=== PATIENT | female | born 1955 | race Caucasian/White ===

== ENCOUNTER → 2016-11-20 | Outpatient (CLI) | payer OTHER | LOC: BMCIMAGING 09:27 | DX: Z12.31 Encounter for screening mammogram for malignant neoplasm of breast (principal); Z80.3 Family history of malignant neoplasm of breast | CPT/HCPCS: G0202 ==

== ENCOUNTER → 2016-12-08 | Outpatient (CLI) | payer OTHER | LOC: BMCIMAGING 12:37 | DX: Z12.39 Encounter for other screening for malignant neoplasm of breast (principal); N63 Unspecified lump in breast | CPT/HCPCS: G0206 ==

== ENCOUNTER 2017-08-22 12:20 | Emergency (ER) | payer OTHER ==
--- NOTE | 2017-08-22 15:43 | EDPHY ---
H & P Time Seen by Provider: 08/22/17 12:31 HPI/ROS: CHIEF COMPLAINT: Dog bites HISTORY OF PRESENT ILLNESS: 62-year-old female presents to the emergency department with multiple dog bites to her upper extremities after she was trying to remove a large dog that was assaulting her own dog. The incident happened just prior to arrival. She complains of pain especially in her left hand. She is left-hand dominant. The dog that bit her is up-to-date on rabies immunization. She has already filed a report with the police. She believes her tetanus shot is current. REVIEW OF SYSTEMS: Constitutional: No fever, no chills. Eyes: No double or blurry vision. ENT: No sore throat. Respiratory: No cough, no shortness of breath. Cardiac: No chest pain. Gastrointestinal: No abdominal pain, vomiting or diarrhea. Genitourinary: No dysuria. Musculoskeletal: No neck or back pain. Skin: No rashes. Neurological: No headache. Past Medical/Surgical History: Negative Social History: Smoking Status: Never smoked Physical Exam: General Appearance: Alert, no distress. Tearful. Family at bedside. Eyes: Pupils equal and round. Extraocular motions are all intact. ENT: Mouth: Mucous membranes moist. Respiratory: No wheezing, rhonchi, or rales, lungs are clear to auscultation. Cardiovascular: Regular rate and rhythm. Gastrointestinal: Abdomen is soft and nontender, no masses, no rebound or guarding, bowel sounds normal. Neurological: Alert and oriented x 3, cranial nerves II through XII grossly intact Skin: Multiple puncture wounds noted to the dorsal aspect of her right hand measuring less than 0.5 cm. Full range of motion of her right hand. No palpable bony tenderness. No obvious swelling noted. There also multiple puncture wounds to the dorsal aspect of her left hand measuring approximately 1 cm. There is 1 over the dorsal aspect of her left 5th digit, left 3rd digit, left 2nd digit and near the base of the thumb. There is also a very small 0.5 cm flap laceration dorsal aspect of her left thumb overlying D IP joint. Warm and dry, no rashes. Musculoskeletal: Nontender to palpate along the cervical, thoracic or lumbar spine. Neck is supple. Extremities: Full range of motion of her fingers. She does have some mild pain with palpation of the 2nd and the 3rd metacarpals of the left hand especially. Is quite swollen and ecchymotic. No obvious rotational deformities noted. No tendon injury identified. Psychiatric: Patient is oriented X 3, there is no agitation. Constitutional: Initial Vital Signs Temperature (C) 36.7 C 08/22/17 12:27 Heart Rate 107 H 08/22/17 12:27 Respiratory Rate 18 08/22/17 12:27 Blood Pressure 145/69 H 08/22/17 12:27 O2 Sat (%) 98 08/22/17 12:27 O2 Delivery Mode Room Air Allergies/Adverse Reactions: ampicillin [Ampicillin] Allergy (Mild, Verified 08/10/10 07:52) clobetasol propionate [From CLOBEX] Allergy (Mild, Verified 08/10/10 07:52) dexamethasone [From Maxitrol] Allergy (Mild, Verified 08/10/10 07:52) iron [Iron] Allergy (Mild, Verified 08/10/10 07:52) latex [Latex] Allergy (Mild, Verified 08/10/10 07:52) miconazole nitrate [From Monistat 3] Allergy (Mild, Verified 08/10/10 07:52) neomycin [From Maxitrol] Allergy (Mild, Verified 08/10/10 07:52) oxycodone HCl [From Percocet] Allergy (Mild, Verified 08/10/10 07:52) Penicillins Allergy (Mild, Verified 08/10/10 07:52) polymyxin B sulfate [From Maxitrol] Allergy (Mild, Verified 08/10/10 07:52) prochlorperazine maleate [From Compazine] Allergy (Mild, Verified 08/10/10 07:52 ) tetracycline [Tetracycline] Allergy (Mild, Verified 08/10/10 07:52) zinc [Zinc] Allergy (Mild, Verified 08/10/10 07:52) Horse/Equine Containing Products Allergy (Unknown, Verified 03/11/15 11:45) Other-Enter Comments oxytetracycline Allergy (Mild, Uncoded 03/11/15 11:41) Other-Enter Comments allum powder Allergy (Unknown, Uncoded 03/11/15 11:48) Unknown Home Medications: Medication Instructions Recorded Aspirin EC [Aspirin EC 81 mg (*)] 81 mg PO DAILY 08/22/17 Ciprofloxacin [Cipro] 500 mg PO BID #14 tab 08/22/17 Clindamycin 450 mg PO TID 7 Days #63 cap 08/22/17 Diclofenac Sodium [Voltaren 50 MG 50 mg PO BID 08/22/17 (*)] SIMVASTATIN 10 mg PO 08/22/17 Medical Decision Making - Diagnostics Imaging Results: Imaging Impressions Hand X-Ray 08/22/17 12:51 Impression: Small 2nd metacarpal cortical divot fracture.. Imaging: I viewed and interpreted images myself Procedures: Verbal consent was obtained from the patient. The multiple 1 cm laceration on the dorsal aspect of the left hand were anesthetized with 1% lidocaine with epinephrine. The wound was irrigated with saline, draped and explored to its base with a gloved finger. There were no deep structures involved. No tendon injury was identified. Lacerations were not repaired given dog bite wounds. The procedure was performed by myself. ED Course/Re-evaluation: 62-year-old female presents to the emergency department with multiple puncture wounds to her left hand. X-rays were obtained of the left hand which revealed a small cortical chip fracture in the 2nd metacarpal. Because this was considered an open fracture, I spoke with on-call orthopedic surgeon. I attempted to call Dr. Mg who was on-call for Hand surgery multiple times and he did not call back. I spoke with Lisha who is a physician assistant manager of operations working with Dr. Juarez was on-call for Orthopedic surgery. They recommended starting the patient on antibiotics, splinting the wounds and they would see her in the office tomorrow. The patient has numerous medication allergies. She was started on clindamycin and ciprofloxacin to prevent infection. Her wounds were thoroughly irrigated and bulky dressing and volar splint applied. Differential Diagnosis: Including but not limited to fracture, contusion, sprain, retained foreign body Departure - Departure Disposition: Home, Routine, Self-Care Clinical Impression: Dog bite of left hand Qualifiers: Encounter type: initial encounter Qualified Code(s): S61.452A - Open bite of left hand, initial encounter Dog bite of right hand Qualifiers: Encounter type: initial encounter Qualified Code(s): S61.451A - Open bite of right hand, initial encounter Condition: Good Instructions: Animal Bite (ED), Acute Wounds (ED) Additional Instructions: Clindamycin 450mg three times daily for 7 days. Cipro 500mg every 12 hours for 7 days. Follow-up with hand surgeon tomorrow. When you call tell them that you were seen in the emergency department and told to be seen Wednesday for follow-up. Ibuprofen 600 mg every 8 hr as needed for pain. Referrals: Lenard Juarez MD [Medical Doctor] - 1 day without fail (Orthopedic surgeon on -call) Prescriptions: Ciprofloxacin [Cipro] 500 mg PO BID #14 tab Clindamycin 450 mg PO TID 7 Days #63 cap
[2017-08-22 16:39] VITALS: BP 155/80; PULSE 94; RESP 13; TEMP 98.8; O2SAT 100
== END 2017-08-22 16:38 | disposition home or self-care (01) ==
DX: S61.452A Open bite of left hand, initial encounter (principal); S61.451A Open bite of right hand, initial encounter; Z79.82 Long term (current) use of aspirin; Z91.040 Latex allergy status; W54.0XXA Bitten by dog, initial encounter; Y99.8 Other external cause status; Y93.89 Activity, other specified

== ENCOUNTER → 2017-11-29 | Outpatient (CLI) | payer OTHER | LOC: FIMAGING 09:43 | PROVIDERS: ATTEND Internal Medicine | DX: Z12.31 Encounter for screening mammogram for malignant neoplasm of breast (principal); Z80.3 Family history of malignant neoplasm of breast ==

== ENCOUNTER → 2018-07-15 | Outpatient (CLI) | payer OTHER | LOC: BMCIMAGING 11:24 | PROVIDERS: ATTEND Internal Medicine Rheumatology | DX: M16.11 Unilateral primary osteoarthritis, right hip (principal); M21.70 Unequal limb length (acquired), unspecified site ==

== ENCOUNTER → 2018-11-24 | Outpatient (CLI) | payer OTHER | LOC: FIMAGING 11:11 | PROVIDERS: ATTEND Physician Assistant | DX: Z01.818 Encounter for other preprocedural examination (principal); M21.70 Unequal limb length (acquired), unspecified site ==

== ENCOUNTER → 2018-11-30 | Outpatient (CLI) | payer OTHER | LOC: FIMAGING 09:33 | PROVIDERS: ATTEND Internal Medicine | DX: Z12.31 Encounter for screening mammogram for malignant neoplasm of breast (principal); Z80.3 Family history of malignant neoplasm of breast ==

== ENCOUNTER 2018-12-12 05:54 | Inpatient (IN) | payer OTHER ==
[2018-12-12] MEDS ORDERED: ROPIVACAINE 0.2% 80 MG, EPINEPHrine 0.2 MG, KETOROLAC TROMETHAMINE 30 MG, morphINE 10 M... IU ONE (06:00)
[2018-12-12] MEDS ORDERED: TRANEXAMIC ACID 1,000 MG in NS 100 ML IV ONE (06:00)
[2018-12-12] MEDS ORDERED: VANCOMYCIN PHARMACY TO DOSE MISC ONE (06:04)
[2018-12-12] MEDS ORDERED: LR 1,000 ML IV ONE ×2 (06:04→06:29)
[2018-12-12] MEDS ORDERED: ACETAMINOPHEN 325 MG TAB PO ONE (06:04)
[2018-12-12] MEDS ORDERED: FAMOTIDINE 20 MG TAB PO ONE (06:04)
--- NOTE | 2018-12-12 06:32 | PDHPUP ---
History & Physical Update H&P update statement: This history and physical update is based on an assessment of the patient which was completed after admission or registration (within 24 hours), but prior to the surgery/procedure. H&P update: no change in patient's condition since H&P completed
--- NOTE | 2018-12-12 06:33 | PDIAF ---
- Diagnosis Diagnosis: left oscar Code Status: Full Code - Medication Management Discharge Medications: electronically signed and located in the Home Medication List. - Orders Services needed: Home Care, Physical Therapy Home Care Face to Face: I certify that this patient was under my care and that I had the required ramv-[id number] encounter meeting the encounter requirements on the discharge day. My findings support the fact that the patient is homebound as defined in Home Care Face to Face Continued: CMS Chapter 7 Medicare Benefits Manual 30.1.1 , The condition of the patient is such that there exists a normal inability to leave home and consequently, leaving home would require a considerable and taxing effort. Diet Recommendation: no restrictions on diet Diet Texture: Regular Texture Diet Additional Instructions: TOTAL JOINT ARTHROPLASTY DISCHARGE INSTRUCTIONS 1. Your surgeon follows the [facility] protocol for reducing your risk of DVT (blood clots) following surgery. Medication will be ordered to prevent blood clots. A sudden increase in calf pain and/or swelling could indicate a blood clot in your leg. If this occurs, please call your surgeon or his/her radiology assistant. An ultrasound of the leg may be necessary to diagnose a blood clot. If you have conditions that make you a higher risk for blood clots, your surgeon may use more aggressive ways to prevent them. Notify your surgeon if you think you are a high risk for blood clots. 2. Wear your white surgical stockings (TUTU hose) for 2 weeks. This decreases your swelling and may help prevent blood clots. It is ok to remove TUTU hose at night time to give your legs a break. 3. Swelling and bruising in the surgical leg is common. If you feel that it is excessive, please notify your surgeon. 4. Elevate your surgical leg with the ankle above the hip several times every day. Please keep the leg straight when you elevate by putting pillows under your foot. Do not put pillows under your knee. This will make being able to fully straighten more difficult. This is uncomfortable, but try to do it as much as possible. 5. For total knee replacements use compressive wrap on your knee for 3-5 days after surgery, then you can discontinue it. 6. Use a walker or crutches for 1-2 weeks. Progress your weight-bearing as tolerated. You may start to use a cane when you feel stable and safe. 7. You will receive physical therapy instructions in the hospital. Continue those exercises at home. There are additional exercises in the total joint booklet you were given before surgery. Outpatient physical therapy will begin 7- 10 days after surgery. Please schedule this in advance. 8. Use ice on your knee at least 3-5 times every day for 30 minutes. This helps reduce pain and swelling. Also use it at night before falling asleep. 9. Leave your surgical dressing in place for 2 weeks. Your dressing is water resistant, but not waterproof. Cover it with Saran Wrap or Tiaeg-m-Gcwy before showering. You may shower as soon as you feel safe entering a shower. If you notice bleeding from your incision 2 or 3 days after surgery, please notify your surgeon. 10. Due to narcotics, decreased activity and altered diet, most patients experience constipation after surgery. Use aswj-ami-rbnwgvi stool softeners while you are on narcotics. 11. You may drive a car when you are comfortable bearing weight, have good muscular control of your leg and are off narcotics. This usually occurs 2-4 weeks after surgery, depending on which leg was operated on. 12. If there are questions not addressed here, please refer the [facility] book given for more information. If you still have questions, please contact your surgeon s office. 13. If you have a life-threatening emergency, please call 911 and go to the emergency room immediately. For non-life threatening emergencies, please call your physicians office for advice before going to the emergency room. - Follow Up Care Current Providers and Referrals: Aguila Feliz MD [Primary Care Provider] - Lenard Robertson MD [Medical Doctor] -
[2018-12-12] MEDS ORDERED: ceFAZolin 1 GM/5 ML SYR ONE (06:59)
[2018-12-12] MEDS ORDERED: VANCOMYCIN 750 MG in D5W 150 ML IV ONE (07:00)
[2018-12-12] MEDS ORDERED: PROPOFOL/EMULSION 500 MG/50 ML BOTTLE IV ONE (07:43)
[2018-12-12] MEDS ORDERED: fentaNYL 250 MCG/5 ML INJ ONE (07:44)
[2018-12-12] MEDS ORDERED: MIDAZOLAM 2 MG/2 ML VIAL IVP ONE (07:50)
--- NOTE | 2018-12-12 07:53 | PDANEPAE ---
ANE History of Present Illness 63 year old female with history of migraines for left hip anterior total arthroplasty. ANE Past Medical History - Cardiovascular History Hx Hypertension: No Hx Arrhythmias: No Hx Chest Pain: No Hx Coronary Artery / Peripheral Vascular Disease: No Hx CHF / Valvular Disease: No Hx Palpitations: No Cardiovascular History Comment: carotid bruit- pcp monitors. high chol - Pulmonary History Hx COPD: No Hx Asthma/Reactive Airway Disease: No Hx Recent Upper Respiratory Infection: No Hx Oxygen in Use at Home: No Hx Sleep Apnea: No Sleep Apnea Screening Result - Last Documented: Negative Pulmonary History Comment: Seasonal allergies. - Neurologic History Hx Cerebrovascular Accident: No Hx Seizures: No Hx Dementia: No - Endocrine History Hx Diabetes: No - Renal History Hx Renal Disorders: No - Liver History Hx Hepatic Disorders: No - Neurological & Psychiatric Hx Hx Neurological and Psychiatric Disorders: Yes Neurological / Psychiatric History Comment: Situational depression in past, resolved. - Cancer History Hx Cancer: No - Congenital Disorder History Hx Congenital Disorders: No - GI History Hx Gastrointestinal Disorders: No - Other Health History Other Health History: Osteoarthritis in joints. - Chronic Pain History Chronic Pain: Yes (L hip, R foot.) - Surgical History Prior Surgeries: 2003-ORIF L leg. Oral/gum surg. ANE Review of Systems Review of systems is: negative Review of Systems: - Exercise capacity METS (RN): 4 METS ANE Patient History - Allergies Allergies/Adverse Reactions: adhesive tape Allergy (Verified 12/12/18 06:58) Rash ampicillin [Ampicillin] Allergy (Verified 12/12/18 06:58) huge sores on mouth and face bacitracin Allergy (Verified 12/12/18 06:58) skin allergy/ reaction bee venom protein (honey bee) Allergy (Verified 12/12/18 06:58) finger swelled and got really red clobetasol propionate [From CLOBEX] Allergy (Verified 12/12/18 06:58) gets worse infection with red ring around infection dexamethasone [From Maxitrol] Allergy (Verified 12/12/18 06:58) Unknown diphenhydramine [From Benadryl] Allergy (Verified 12/12/18 06:58) only cream- itchiness, redness, swelling Horse/Equine Containing Products Allergy (Verified 12/12/18 06:58) thinks it has to do with penicillin allgery iron [Iron] Allergy (Verified 12/12/18 06:58) itching throat latex [Latex] Allergy (Verified 12/12/18 06:58) Rash miconazole nitrate [From Monistat 3] Allergy (Verified 12/12/18 06:58) very itchy neomycin [From Maxitrol] Allergy (Verified 12/12/18 06:58) Unknown oxycodone HCl [From Percocet] Allergy (Verified 12/12/18 06:58) migraine headache Penicillins Allergy (Verified 12/12/18 06:58) huge sores on mouth and face polymyxin B sulfate [From Maxitrol] Allergy (Verified 12/12/18 06:58) Unknown prochlorperazine maleate [From Compazine] Allergy (Verified 12/12/18 06:58) almost from- anaphylaxis tetracycline [Tetracycline] Allergy (Verified 12/12/18 06:58) itchiness and rash zinc [Zinc] Allergy (Verified 12/12/18 06:58) zinc is common factor in all allergies listed allum powder Allergy (Uncoded 12/12/18 06:58) "causes female problems" oxytetracycline Allergy (Uncoded 12/12/18 06:58) itchiness and rash - Home Medications Home Medications: Aspirin EC [Aspirin EC 81 mg (*)] 81 mg PO DAILY 08/22/17 [Last Taken 12/05/18] Butal/Asp/Caffeine-Fiorinal [Fiorinal 50-325-40 mg Cap (RX)] 1 each PO Q6 PRN [Last Taken 12/05/18] Diclofenac Sodium [Voltaren 75 MG (*)] 75 mg PO BID 11/15/18 [Last Taken ] EPINEPHrine [Epipen 0.3 MG] 0.3 mg IM AD 11/15/18 [Last Taken Unknown] Loratadine [Claritin 10 mg] 10 mg PO DAILY 11/15/18 [Last Taken 12/11/18 22:00] SUMAtriptan [Imitrex 25 MG (*)] 25 mg PO Q2H PRN 11/15/18 [Last Taken 11/12/18] Simvastatin [Zocor] 20 mg PO HS 11/15/18 [Last Taken 12/05/18] Valacyclovir HCl [Valtrex] 1,000 mg PO BID PRN 11/15/18 [Last Taken 11/12/18] - NPO status NPO Since - Liquids (Date): 12/12/18 NPO Since - Liquids (Time): 05:30 NPO Since - Solids (Date): 12/11/18 NPO Since - Solids (Time): 22:00 - Smoking Hx Smoking Status: Never smoked - Family Anes Hx Family Hx Anesthesia Complications: none ANE Labs/Vital Signs - Vital Signs Blood Pressure: 139/94 Heart Rate: 91 Respiratory Rate: 16 O2 Sat (%): 91 Height: 158.75 cm Weight: 53.524 kg ANE Physical Exam - Airway Neck exam: FROM Mallampati Score: Class 2 Mouth exam: normal dental/mouth exam - Pulmonary Pulmonary: no respiratory distress - Cardiovascular Cardiovascular: regular rate and rhythym - ASA Status ASA Status: II ANE Anesthesia Plan Anesthesia Plan: spinal
[2018-12-12] MEDS ORDERED: POLYETHYLENE GLYCOL 3350 17 GM PKT PO PRN (09:43)
[2018-12-12] MEDS ORDERED: LACTULOSE 20 GM/30 ML UDCUP PO PRN (09:43)
[2018-12-12] MEDS ORDERED: PROMETHAZINE HCL 25 MG/ML INJ IVP PRN (09:43)
[2018-12-12] MEDS ORDERED: PROMETHAZINE HCL 25 MG SUPPR PR PRN (09:43)
[2018-12-12] MEDS ORDERED: MAGNESIUM HYDROXIDE 30 ML UDCUP PO PRN (09:43)
[2018-12-12] MEDS ORDERED: METOCLOPRAMIDE 10 MG/2 ML VIAL IVP PRN (09:43)
[2018-12-12] MEDS ORDERED: ONDANSETRON 4 MG/2 ML VIAL IVP PRN (09:43)
[2018-12-12] MEDS ORDERED: ONDANSETRON DISINTEGRATING 4 MG TAB PO PRN (09:43)
[2018-12-12] MEDS ORDERED: diphenhydrAMINE 25 MG CAP PO PRN (09:43)
[2018-12-12] MEDS ORDERED: DIPHENOXYLATE/ATROPINE LOMOTIL 1 TAB PO PRN (09:43)
[2018-12-12] MEDS ORDERED: BISACODYL 10 MG SUPP PR PRN (09:43)
[2018-12-12] MEDS ORDERED: TEMAZEPAM 15 MG CAP PO PRN (09:43)
[2018-12-12] MEDS ORDERED: CYCLOBENZAPRINE 10 MG TAB PO PRN (09:43)
--- NOTE | 2018-12-12 09:43 | POSTOPPROG ---
Post Op Note Date of Operation: 12/12/18 Surgeon: Lenard Robertson Rv Repair Technician: Martell Anesthesiologist: Destinee Anesthesia: Spinal Pre-op Diagnosis: Left hip DJD Post-op Diagnosis: same Indication: same Procedure: Left ANGELIQUE, robot assist Findings: Left hip DJD Inf/Abcess present in the surg proc area at time of surgery?: No Depth: Deep Incisional (Fascial) EBL: 100-500 Drains: Hemovac
[2018-12-12] MEDS ORDERED: SUMAtriptan 25 MG TAB PO PRN (09:45)
[2018-12-12] MEDS ORDERED: BUTAL/ASP/CAFFEINE-FIORINAL 1 EACH CAP PO PRN (09:45)
[2018-12-12] MEDS ORDERED: LR 1,000 ML IV SCH (10:00)
--- NOTE | 2018-12-12 10:24 | POSTANESTH ---
Post Anesthetic Evaluation Cardiovascular Status: Normal, Stable Respiratory Status: Normal, Stable Level of Consciousness/Mental Status: Mildly Sleepy, Arousable Pain Control: Adequate, Prn Tx Ordered Nausea/Vomiting Control: Adequate, Prn Tx Ordered Complications Possibly Related to Anesthesia: None Noted
[2018-12-12] MEDS ORDERED: HYDROCODONE/APAP 5/325 TAB PO PRN (10:35)
[2018-12-12] MEDS ORDERED: DEXAMETHASONE 4 MG/ML VIAL IVP PRN (10:35)
[2018-12-12] MEDS ORDERED: NALOXONE HCL 0.4 MG/ML INJ IVP PRN (10:35)
[2018-12-12] MEDS ORDERED: fentaNYL 100 MCG/2 ML INJ IVP PRN (10:35)
--- NOTE | 2018-12-12 10:42 | PDMN ---
Medical Necessity Medical necessity: Pt meets inpt criteria per MD order and [facility] S-560, Hip Arthroplasty, IP only list, inpt auth #[id number] for CPT 24593. 63 y/o w/L hip DJD admitted for L ANGELIQUE and post-op care.
[2018-12-12] MEDS ORDERED: valACYclovir 500 MG TAB PO PRN (12:00)
[2018-12-12] MEDS: oxyCODONE IR 5 MG TAB PO PRN (13:02)
--- NOTE | 2018-12-12 16:03 | SOAPPROG ---
SOAP Progress Note Assessment/Plan: Assessment/Plan: Patient s/p left ANGELIQUE robotic assist this morning. Likely discharge home tomorrow with home health. Continue pain medication, currently controlled but some nausea Continue VTE ppx with ASA 325 mg once daily x 6 weeks, SCDs, TUTU moran Continue PT efforts Subjective: Patient states her left hip is a bit sore and she is feeling a bit nauseated from the pain medication. She is still hoping to go home tomorrow with home health. She denies shortness of breath, chest pain, fever, chills. Objective: Vital Signs Temp Pulse Resp BP Pulse Ox 36.6 C 78 14 122/75 H 96 12/12/18 14:47 12/12/18 14:47 12/12/18 14:47 12/12/18 14:47 12/12/18 14:47 12/11/18 12/12/18 12/13/18 05:59 05:59 05:59 Intake Total 860 Output Total 70 Balance 790 Patient resting comfortably in bed, no acute distress. LLE: wound dressings are clean, dry, intact. Calf is soft and nontender. She can actively dorsiflex and plantarflex her left foot and great toe. Grossly NVI distally. ICD10 Worksheet Patient Problems: Problems Problem Status Onset Unilateral primary osteoarthritis, left hip Acute
[2018-12-12] MEDS: TRANEXAMIC ACID 650 MG TAB PO SCH (16:46)
[2018-12-12] MEDS: ACETAMINOPHEN 325 MG TAB PO SCH ×2 (16:46→20:22)
[2018-12-12] MEDS: ASPIRIN 325 MG TAB PO SCH (20:22)
[2018-12-12] MEDS: FAMOTIDINE 20 MG TAB PO SCH (20:22)
[2018-12-12] MEDS: SENNOSIDES/DOCUSATE SODIUM TAB PO SCH (20:22)
[2018-12-12] MEDS ORDERED: ATORVASTATIN CALCIUM 10 MG TAB PO SCH (21:00)
[2018-12-13] MEDS: TRANEXAMIC ACID 650 MG TAB PO SCH ×2 (00:07→08:24)
[2018-12-13] MEDS: ACETAMINOPHEN 325 MG TAB PO SCH ×2 (04:23→08:25)
[2018-12-13] MEDS: oxyCODONE IR 5 MG TAB PO PRN (04:25)
--- NOTE | 2018-12-13 07:30 | PDIAF ---
- Diagnosis Diagnosis: left oscar Code Status: Full Code - Medication Management Discharge Medications: electronically signed and located in the Home Medication List. - Orders Services needed: Home Care, Physical Therapy Home Care Face to Face: I certify that this patient was under my care and that I had the required rjoq-gk-[id number] encounter meeting the encounter requirements on the discharge day. My findings support the fact that the patient is homebound as defined in Home Care Face to Face Continued: CMS Chapter 7 Medicare Benefits Manual 30.1.1 , The condition of the patient is such that there exists a normal inability to leave home and consequently, leaving home would require a considerable and taxing effort. Diet Recommendation: no restrictions on diet Diet Texture: Regular Texture Diet Additional Instructions: TOTAL JOINT ARTHROPLASTY DISCHARGE INSTRUCTIONS 1. Your surgeon follows the [facility] protocol for reducing your risk of DVT (blood clots) following surgery. Medication will be ordered to prevent blood clots. A sudden increase in calf pain and/or swelling could indicate a blood clot in your leg. If this occurs, please call your surgeon or his/her animal assistant. An ultrasound of the leg may be necessary to diagnose a blood clot. If you have conditions that make you a higher risk for blood clots, your surgeon may use more aggressive ways to prevent them. Notify your surgeon if you think you are a high risk for blood clots. 2. Wear your white surgical stockings (TUTU hose) for 2 weeks. This decreases your swelling and may help prevent blood clots. It is ok to remove TUTU hose at night time to give your legs a break. 3. Swelling and bruising in the surgical leg is common. If you feel that it is excessive, please notify your surgeon. 4. Elevate your surgical leg with the ankle above the hip several times every day. Please keep the leg straight when you elevate by putting pillows under your foot. Do not put pillows under your knee. This will make being able to fully straighten more difficult. This is uncomfortable, but try to do it as much as possible. 5. For total knee replacements use compressive wrap on your knee for 3-5 days after surgery, then you can discontinue it. 6. Use a walker or crutches for 1-2 weeks. Progress your weight-bearing as tolerated. You may start to use a cane when you feel stable and safe. 7. You will receive physical therapy instructions in the hospital. Continue those exercises at home. There are additional exercises in the total joint booklet you were given before surgery. Outpatient physical therapy will begin 7- 10 days after surgery. Please schedule this in advance. 8. Use ice on your knee at least 3-5 times every day for 30 minutes. This helps reduce pain and swelling. Also use it at night before falling asleep. 9. Leave your surgical dressing in place for 2 weeks. Your dressing is water resistant, but not waterproof. Cover it with Saran Wrap or Mhhja-j-Wiqg before showering. You may shower as soon as you feel safe entering a shower. If you notice bleeding from your incision 2 or 3 days after surgery, please notify your surgeon. 10. Due to narcotics, decreased activity and altered diet, most patients experience constipation after surgery. Use gdyy-mrh-flbxhtt stool softeners while you are on narcotics. 11. You may drive a car when you are comfortable bearing weight, have good muscular control of your leg and are off narcotics. This usually occurs 2-4 weeks after surgery, depending on which leg was operated on. 12. If there are questions not addressed here, please refer the [facility] book given for more information. If you still have questions, please contact your surgeon s office. 13. If you have a life-threatening emergency, please call 911 and go to the emergency room immediately. For non-life threatening emergencies, please call your physicians office for advice before going to the emergency room. - Follow Up Care Current Providers and Referrals: Aguila Feliz MD [Primary Care Provider] - Lenard Robertson MD [Medical Doctor] -
[2018-12-13] MEDS: ASPIRIN 325 MG TAB PO SCH (08:24)
[2018-12-13] MEDS: FAMOTIDINE 20 MG TAB PO SCH (08:24)
[2018-12-13] MEDS: SENNOSIDES/DOCUSATE SODIUM TAB PO SCH (08:25)
[2018-12-13 08:33] VITALS: BP 112/75
--- NOTE | 2018-12-13 14:26 | SOAPPROG ---
SOAP Progress Note Assessment/Plan: Assessment: s/p left ANGELIQUE POD 1 Plan: D/C home WBAT ROM as tolerated Home PT with data recovery planner DVT precautions reviewed F/U at two weeks Seek attention for increasing pain, swelling or other focal complaint 12/13/18 14:28 Subjective: Patient complains of mild left hip pain. States there is no chest pain or shortness of breath. Patient tolerating oral diet and pain medication is also tolerable. Objective: Vital Signs Temp Pulse Resp BP Pulse Ox 36.4 C 92 16 112/75 97 12/13/18 08:00 12/13/18 08:00 12/13/18 08:00 12/13/18 08:00 12/13/18 08:00 Laboratory Results 12/13/18 04:43 12/12/18 12/13/18 12/14/18 05:59 05:59 05:59 Intake Total 2220 Output Total 1090 Balance 1130 LLE: Dressing is clean, dry, intact. Intact PF, DF, EHL. Toes are warm and pink. Negative Homans bilaterally. X-rays stable anatomic alignment, no fracture or lucency. ICD10 Worksheet Patient Problems: Problems Problem Status Onset Unilateral primary osteoarthritis, left hip Acute
--- NOTE | 2018-12-13 14:29 | ASDISCHSUM ---
Discharge Information Plan Status:Home with Home Health Medically Cleared to Leave: Discharge Date:12/13/2018 12:52 PM CM D/C Disposition: ADT D/C Disposition:Home Health Service Projected Discharge Date:12/13/2018 11:00 AM Transportation at D/C: Discharge Delay Reason: Follow-Up Date:12/13/2018 11:00 AM Discharge Slot: Final Diagnosis: Placement Information Referral Type:*Home Health Care Services Referral ID:[id number] Provider Name:[facility] Address 1:[address] Address 2: City:[place] Selection Factors: State:[place] Patient Contact Information Contact Name:PAULA Relationship:Sister Address: Work Phone: [place] [facility] [place] Phone: [facility] Code: Email: Financial Information Financial Class:BC Primary Plan Desc:[employer] [employer] Primary Plan Number:[id number] Secondary Plan Desc: Secondary Plan Number: Assessment Information LACE LACE Length of stay for Answers: 2 days current admission Acuity / Level of Answers: Yes Care: Did the patient have an inpatient admission? Comorbidities - select Answers: Opioid dependence all that apply / Chronic pain # of Emergency department Answers: 0 visits in the last 6 months Social determinants Answers: Mental health diagnosis (anxiety, depression, pers onality disorders, etc.) Score: 12 Date Signed: 12/13/2018 02:25 PM Electronically Signed By:GAYATHRI Kay [facility] CM Progress Note CM Note CM Note Notes: Pt had planned hip surgery. PT rec [facility], pt wants HC and chooses [facility]. Orders to be obtained via [employer]. Pt address/phone verified. Date Signed: 12/13/2018 02:27 PM Electronically Signed By:GAYATHRI Kay Intervention Information
--- NOTE | 2018-12-13 14:29 | ASMTCMCOM ---
CM Note CM Note Notes: Pt had planned hip surgery. PT rec [facility], pt wants HC and chooses [facility]. Orders to be obtained via [employer]. Pt address/phone verified. Date Signed: 12/13/2018 02:27 PM Electronically Signed By:GAYATHRI Kay
--- NOTE | 2018-12-13 14:33 | PDDCSUM ---
Discharge Summary Discharge Summary: ADMIT DIAGNOSIS: Left hip degenerative joint disease DISCHARGE DIAGNOSIS: Left hip degenerative joint disease NAME OF PROCEDURE: Left total hip arthroplasty HPI: The patient is a 63 year old female who has end-stage arthritis of her left hip. Clinical and radiographic features are consistent with this. She has failed attempts at conservative management, therefore, recommended operative left hip replacement. HOSPITAL COURSE: Patient was admitted to the hospital floor after uncomplicated left total hip arthroplasty. Patient tolerated the procedure well and had no additional complications. At the time of discharge, patient is tolerating an oral diet, pain is well controlled on oral medications, and is voiding without difficulty. Dressing is clean, dry and intact. There is no swelling or calf tenderness. Patient has intact plantarflexion, dorsiflexion, EHL function. X- rays demonstrate anatomic positioning with no fracture or lucency. DISCHARGE ACTIVITY: Patient is WBAT and can perform ROM as tolerated but she will follow anterior total hip precautions. Patient was instructed to keep dressing clean, dry and intact. Patient is to seek attention for increasing redness, swelling, drainage or discharge. DISCHARGE MEDICATIONS: oxycodone 5 mg 1-2 every 3 hours prn pain, cyclobenzaprine 10 mg PO every 8 hours prn spasm, Zofran 4 mg orally disintegrating tablet every 8 hours prn nausea, aspirin 325 mg PO daily FOLLOW-UP: Follow up in 2 weeks. Again, patient is to seek attention for increasing redness, swelling, drainage or discharge.
== END 2018-12-13 12:52 | disposition home health service (06) | DRG 470 ==
LOC: F3N 05:54
PROVIDERS: ADMIT Orthopaedic Surgery; ATTEND Orthopaedic Surgery
PROC: 8E0Y0CZ Robotic Assisted Procedure of Lower Extremity, Open Approach (ICD-10-PCS; principal; 2018-12-12 08:30)
PROC: 0SRB04A Replacement of Left Hip Joint with Ceramic on Polyethylene Synthetic Substitute, Uncemented, Open Approach (ICD-10-PCS; principal; 2018-12-12 08:30)
DX: M16.12 Unilateral primary osteoarthritis, left hip (principal); E78.00 Pure hypercholesterolemia, unspecified
CPT/HCPCS: 97116-GP; 97161-GP; 97165-GO; 97530-GP; 97535-GO; J0171; J1885; J2250; J2270; J2704; J2795; J3010; J3370

== ENCOUNTER → 2019-01-24 | Outpatient (CLI) | payer OTHER | LOC: BMCIMAGING 08:49 | PROVIDERS: ATTEND Physician Assistant | DX: Z09 Encounter for follow-up examination after completed treatment for conditions other than malignant neoplasm (principal); Z96.642 Presence of left artificial hip joint ==